=== PATIENT | female | born 1985 | race Two or more races ===

== ENCOUNTER 2022-08-29 18:57 | Emergency (ER) | payer OTHER ==
[~2022-08-29] VITALS: Ht 152.4 cm; Wt 10.0 kg
[2022-08-29 19:27] VITALS: BP 133/83
[2022-08-29] MEDS ORDERED: ONDANSETRON HCL 4 MG/2 ML VIAL IV ONE (19:30)
[2022-08-29] MEDS ORDERED: SODIUM CHLORIDE 0.9% 500 ML IVB ONE (19:30)
[2022-08-29 20:05] LABS: Basophils # (auto) 0 10 ^3/uL (0-0.2); Basophils % (auto) 0.3 % (0.0-2.0); Hematocrit 37.7 % (36.0-46.0); Monocytes # (auto) 0.4 10 ^3/uL (0-1.3); Neutrophils # (auto) 3.3 10 ^3/uL (1.6-8.6); Nucleated Red Blood Cells % 0.1 %; White Blood Cell 6.1 10^3/uL (4.4-10.8)
[2022-08-29 20:07] LABS: Eosinophils # (auto) 0 10 ^3/uL (0-0.8); Eosinophils % (auto) 0.6 % (0.0-7.0); Hemoglobin 12.5 g/dL (12.2-16.2); Lymphocytes # (auto) 2.3 10 ^3/uL (0.4-5.4); Mean Corpuscular Hemoglobin 25.7 pg (28.0-32.0); Mean Corpuscular Hgb Conc. 33.1 g/dL (32.0-36.0); Mean Corpuscular Volume 77.8 fL (80.0-100.0); Monocytes % (auto) 6.9 % (0.0-12.0); Neutrophils % (auto) 54.2 % (37.0-80.0); Red Blood Cells 4.85 10^6/uL (4.0-5.20); Red Cell Distribution Width 16.7 % (11.8-14.3)
[2022-08-29 20:29] LABS: Albumin 3.1 g/dL (3.4-5.0); BUN/Creatinine Ratio 12.9; Bilirubin, Total 0.3 mg/dL (0.2-1.0); Calcium 8.9 mg/dL (8.5-10.1); Potassium 3.9 mmol/L (3.5-5.1)
== END 2022-08-30 02:00 | disposition left against medical advice (07) ==
LOC: EDBD 18:57 → ER 19:00
DX: R10.13 Epigastric pain (principal); R10.2 Pelvic and perineal pain
CPT/HCPCS: 36415; 80053; 82150; 83690; 84702; 85025; 93005